=== PATIENT | male | born 2000 | race Caucasian/White ===

== ENCOUNTER 2022-12-02 15:52 | Emergency (ER) | payer SELFPAY ==
[~2022-12-02] VITALS: Ht 177.8 cm; Wt 79.4 kg
[2022-12-02 15:58] VITALS: BP 165/101
--- NOTE | 2022-12-02 16:27 | NUR ---
SLING APPLIED TO R ARM,
[2022-12-02] MEDS ORDERED: HYDROcodone/APAP 5/325 MG 1 TAB TAB PO ONE (16:55)
--- NOTE | 2022-12-02 16:56 | NUR ---
LONG ELBOW POSTERIOR SPLINT APPLIED. + CMS. COLTEN WRAP X 3.
[2022-12-02] MEDS ORDERED: ACET-8905 PO (17:08)
[2022-12-02] MEDS ORDERED: IBUP-2213 PO (17:08)
--- NOTE | 2022-12-02 17:38 | NUR ---
Patient discharged with v/s stable. Written and verbal after care instructions given and explained. Patient alert, oriented and verbalized understanding of instructions. Ambulatory with steady gait. All questions addressed prior to discharge. ID band removed. Patient advised to follow up with PMD. Rx of NORCO, MOTRIN given. Patient educated on indication of medication including possible reaction and side effects. Opportunity to ask questions provided and answered.
[2022-12-03] MEDS ORDERED: IBUP-2213 PO (15:31)
[2022-12-03] MEDS ORDERED: ACET-8905 PO (15:31)
== END 2022-12-02 17:38 | disposition home or self-care (01) ==
LOC: MED 15:52
DX: S42.491A Other displaced fracture of lower end of right humerus, initial encounter for closed fracture (principal); X58.XXXA Exposure to other specified factors, initial encounter; Y93.89 Activity, other specified; Y92.89 Other specified places as the place of occurrence of the external cause; Y99.8 Other external cause status
CPT/HCPCS: 29105; 73070; 99283